=== PATIENT | male | born 1990 | race Caucasian/White ===

== ENCOUNTER 2017-04-18 12:38 | Emergency (ER) | payer OTHER | END 2017-04-18 13:27 | disposition home or self-care (01) | LOC: FER 12:38 | DX: K03.81 Cracked tooth (principal); Z79.1 Long term (current) use of non-steroidal anti-inflammatories (NSAID) | CPT/HCPCS: 99282 ==

== ENCOUNTER 2017-04-21 15:54 | Emergency (ER) | payer OTHER | END 2017-04-21 18:41 | disposition left against medical advice (07) | LOC: FER 15:54 | DX: K08.89 Other specified disorders of teeth and supporting structures (principal); Z53.8 Procedure and treatment not carried out for other reasons ==

== ENCOUNTER 2021-01-29 14:21 | Emergency (ER) | payer OTHER | END 2021-01-29 15:23 | disposition home or self-care (01) | LOC: FER 14:21 | DX: S80.12XA Contusion of left lower leg, initial encounter (principal); W22.8XXA Striking against or struck by other objects, initial encounter; Y92.410 Unspecified street and highway as the place of occurrence of the external cause | CPT/HCPCS: 73590 ==